=== PATIENT | female | born 1955 | race Caucasian/White ===

== ENCOUNTER → 2018-08-30 | Outpatient (CLI) | payer OTHER ==
[~2018-08-30] MED LIST: ASPIR 8181 MG PO; CARVEDILOL3.125 MG PO; LISINOPRIL10 MG PO; NEXIUM40 MG PO; POTASSIUM20 PO; SIMVASTATIN40 MG PO; VITAMIN B-1100 M1 PO; XANAX 0.5 MG0.5 MG PO
== END ==
LOC: M.ULTRA 08:12
DX: K76.9 Liver disease, unspecified (principal); N28.1 Cyst of kidney, acquired